=== PATIENT | male | born 1965 | race Asian ===

== ENCOUNTER 2017-03-18 08:38 | Emergency (ER) | payer MEDICAID ==
[~2017-03-18] VITALS: Ht 175.3 cm; Wt 96.7 kg
[2017-03-18 08:40] VITALS: BP 149/106
== END 2017-03-18 09:20 | disposition home or self-care (01) ==
LOC: ED 08:38
DX: Z76.0 Encounter for issue of repeat prescription (principal); E03.9 Hypothyroidism, unspecified

== ENCOUNTER 2017-04-19 08:31 | Emergency (ER) | payer MEDICAID ==
[~2017-04-19] VITALS: Ht 175.3 cm; Wt 96.6 kg
[2017-04-19 08:35] VITALS: BP 149/93
== END 2017-04-19 09:22 | disposition home or self-care (01) ==
LOC: ED 08:31
DX: Z76.0 Encounter for issue of repeat prescription (principal); E03.9 Hypothyroidism, unspecified